=== PATIENT | female | born 1980 | race Caucasian/White ===

== ENCOUNTER → 2016-10-31 | Outpatient (CLI) | payer MEDICAID ==
[2016-10-31 14:21] LABS: HEMATOCRIT 40.6 % (36.0-47.0); HEMOGLOBIN 14.1 g/dL (12.0-15.5); HGB HCT DIFFERENCE 1.7; MEAN CORPUSCULAR HEMOGLOBIN 31.6 pg (27.0-33.4); MEAN CORPUSCULAR HGB CONC 34.6 g/dL (32.0-36.0); MEAN CORPUSCULAR VOLUME 91 fl (80-97); RED BLOOD COUNT 4.46 10^6/uL (3.72-5.28); RED CELL DISTRIBUTION WIDTH 12.9 % (11.5-14.0); WHITE BLOOD COUNT 7.2 10^3/uL (4.0-10.5)
[2016-10-31 14:40] LABS: ALANINE AMINOTRANSFERASE 21 U/L (9-52); ALBUMIN 4.2 g/dL (3.5-5.0); ALKALINE PHOSPHATASE 51 U/L (38-126); ASPARTATE AMINO TRANSFERASE 16 U/L (14-36); BILIRUBIN,DIRECT 0.1 mg/dL (0.0-0.4); BILIRUBIN,TOTAL 0.5 mg/dL (0.2-1.3); CHOLESTEROL 146.55 mg/dL (0-200); Direct HDL 57 mg/dL (>40); MAGNESIUM 1.8 mg/dL (1.6-2.3); TOTAL PROTEIN 6.8 g/dL (6.3-8.2); TRIGLYCERIDES 40 mg/dL (<150)
[2016-10-31 14:49] LABS: ANION GAP 12 (5-19); BLOOD UREA NITROGEN 9 mg/dL (7-20); CALCIUM 9.3 mg/dL (8.4-10.2); CARBON DIOXIDE 26 mmol/L (22-30); CHLORIDE 106 mmol/L (98-107); CREATININE RESULT 0.86 mg/dL (0.52-1.25); GLUCOSE 96 mg/dL (75-110); POTASSIUM 4.6 mmol/L (3.6-5.0); SODIUM 143.8 mmol/L (137-145)
[2016-10-31 14:51] LABS: DIRECT LDL 68 mg/dL (<100)
== END ==
LOC: OD 13:00
PROVIDERS: ATTEND Internal Medicine Cardiovascular Disease
DX: E89.0 Postprocedural hypothyroidism (principal); R00.2 Palpitations
CPT/HCPCS: 36415; 80048; 80061; 80076; 83735; 84443; 85027

== ENCOUNTER → 2016-11-29 | Outpatient (CLI) | payer MEDICAID ==
--- NOTE | 2016-11-29 14:06 | RADIOLOGY REPORT (SQ) ---
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 Additional selected color Doppler and spectral images recorded. LIMITATIONS: None. FINDINGS: UTERUS: Contour normal. No mass. Uterus is 8 x 5 x 5 cm in size. ENDOMETRIAL STRIPE: No focal or generalized thickening. No masses. Endometrial stripe 12 mm in thick ness. No gross endometrial cysts or polyps. CERVIX: No nabothian cysts. RIGHT OVARY: No abnormal masses. Right ovary measures 3 x 2.4 x 2.4 cm in size with a 2 cm simple cys t. 4 or 5 other small less than 5 mm follicular cysts are present. RIGHT OVARY DOPPLER: Normal arterial vascular flow without evidence for torsion. LEFT OVARY: No abnormal masses. Left ovary measures 2.7 x 1.6 x 1.3 cm in size. 12 follicular cysts are present, less than 5 mm in size. LEFT OVARY DOPPLER: Normal arterial vascular flow without evidence for torsion. FREE FLUID: None noted. OTHER: No other significant finding. IMPRESSION: Stable 2 cm right ovarian simple cyst. Otherwise unremarkable study TECHNICAL DOCUMENTATION: JOB ID: [id number]- All Rights Reserved
== END ==
LOC: RAD 10:43
PROVIDERS: ATTEND Family Medicine
DX: N83.291 Other ovarian cyst, right side (principal); N83.10 Corpus luteum cyst of ovary, unspecified side
CPT/HCPCS: 76830

== ENCOUNTER 2016-12-01 18:27 | Emergency (ER) | payer MEDICAID ==
[2016-12-01] MEDS ORDERED: ACETAMINOPHEN 325 MG TABLET PO ONE (20:03)
--- NOTE | 2016-12-01 20:04 | ER Document Report ---
ED ENT - General Chief Complaint: Neck and Upper Back Pain Stated Complaint: HEAD PAIN Time Seen by Provider: 12/01/16 19:35 Mode of Arrival: Ambulatory Information source: Patient Notes: 36-year-old female presents to ED for complaint of left ear pain with left- sided throat hurting left neck hurting, body aches with small insect bite to the left shoulder. There is a history of thyroid parahepatic for cancer as well as cervical cancer. TRAVEL OUTSIDE OF THE [place] IN LAST 30 DAYS: No - HPI Patient complains to provider of: Ear problem, Nose problem, Throat problem Onset: Other - Couple of days Onset/Duration: Gradual Quality of pain: Achy, Sharp Severity: Moderate Pain Level: 4 Context: Recent Illness Location of pain: Ears, Nose, Sinus, Throat, Other - Body aches Associated symptoms: Congestion, Cough, Ear pain, Runny nose, Sinus drainage, Sore throat, Swollen glands, Other - Insect bite to the left shoulder Similar symptoms previously: Yes Recently seen / treated by doctor: No - Related Data Allergies/Adverse Reactions: No Known Allergies Allergy (Verified 12/01/16 18:55) Past Medical History - General Information source: Patient - Social History Smoking Status: Former Smoker Cigarette use (# per day): No Chew tobacco use (# tins/day): No Smoking Education Provided: No Frequency of alcohol use: None Drug Abuse: Marijuana Occupation: Disability Lives with: Family Family History: CAD, CVA, Hyperlipidemia, Hypertension, Malignancy, Thyroid Disfunction Patient has suicidal ideation: No Patient has homicidal ideation: No - Past Medical History Cardiac Medical History: Reports: None Pulmonary Medical History: Reports: None EENT Medical History: Reports: None Neurological Medical History: Reports: None Endocrine Medical History: Reports: Hx Hypothyroidism - Thyroid and parathyroid removed due to thyroid cancer Renal/ Medical History: Reports: None Malignancy Medical History: Reports: Hx Cervical Cancer, Other - Thyroid cancer GI Medical History: Reports: None Musculoskeltal Medical History: Reports None Skin Medical History: Reports None Psychiatric Medical History: Reports: Hx Dementia, Hx Depression Traumatic Medical History: Reports: None Infectious Medical History: Reports: None Past Surgical History: Reports: Hx Gynecologic Surgery - Endoscopy D&C polypectomy from uterus, Hx Thyroid Surgery - Thyroidectomy as well as parathyroid gland, Other - ECT for depression Review of Systems - Review of Systems Constitutional: Recent illness EENT: Ear pain, Sinus pressure, Sinus discharge, Throat pain Cardiovascular: No symptoms reported Respiratory: Cough Gastrointestinal: No symptoms reported Genitourinary: No symptoms reported Female Genitourinary: No symptoms reported Musculoskeletal: Muscle pain - Body aches Skin: No symptoms reported Hematologic/Lymphatic: No symptoms reported Neurological/Psychological: No symptoms reported Physical Exam - Vital signs Vitals: Temp Pulse Resp BP Pulse Ox 98.2 F 106 H 18 130/89 H 100 12/01/16 18:55 12/01/16 18:55 12/01/16 18:55 12/01/16 18:55 12/01/16 18:55 Interpretation: Normal - General General appearance: Appears well, Alert - HEENT Head: Normocephalic, Atraumatic Eyes: Normal Pupils: PERRL Ears: Normal External canal: Normal Tympanic membrane: Normal Sinus: Normal Nasal: Purulent discharge, Swelling Mouth/Lips: Normal Mucous membranes: Normal Pharynx: Erythema, Post nasal drainage. No: Exudate, Tonsillar hypertrophy Neck: Anterior cervical chain - Respiratory Respiratory status: No respiratory distress Chest status: Nontender Breath sounds: Nonproductive cough Chest palpation: Normal - Cardiovascular Rhythm: Regular Heart sounds: Normal auscultation Murmur: No - Abdominal Inspection: Normal Distension: No distension Bowel sounds: Normal Tenderness: Nontender Organomegaly: No organomegaly - Back Back: Normal, Nontender - Extremities General upper extremity: Normal inspection, Nontender, Normal color, Normal ROM , Normal temperature General lower extremity: Normal inspection, Nontender, Normal color, Normal ROM , Normal temperature, Normal weight bearing. No: Maria Guadalupe's sign - Neurological Neuro grossly intact: Yes Cognition: Normal Orientation: AAOx4 Adiel Coma Scale Eye Opening: Spontaneous Adiel Coma Scale Verbal: Oriented Adiel Coma Scale Motor: Obeys Commands Kingman Coma Scale Total: 15 Speech: Normal Motor strength normal: LUE, RUE, LLE, RLE Sensory: Normal - Psychological Associated symptoms: Normal affect, Normal mood - Skin Skin Temperature: Warm Skin Moisture: Dry Skin Color: Normal Course - Re-evaluation Re-evalutation: 12/01/16 22:26 Consistent with an upper respiratory infection with runny nose cough congestion. Patient complains of sore throat strep was done which was negative. Patient to follow-up with her primary doctor. - Vital Signs Vital signs: Temp Pulse Resp BP Pulse Ox 98.0 F 76 18 124/84 98 12/01/16 21:20 12/01/16 21:20 12/01/16 21:20 12/01/16 21:20 12/01/16 21:20 Discharge - Discharge Clinical Impression: Sore throat (viral) URI (upper respiratory infection) Qualifiers: URI type: unspecified URI Qualified Code(s): J06.9 - Acute upper respiratory infection, unspecified Headache Qualifiers: Headache type: unspecified Headache chronicity pattern: unspecified pattern Intractability: not intractable Qualified Code(s): R51 - Headache Condition: Stable Disposition: HOME, SELF-CARE Additional Instructions: UPPER RESPIRATORY ILLNESS: You have a viral infection of the respiratory passages -- a "cold." This common infection causes nasal congestion, drainage, and often sore throat and cough. It is highly contagious. The disease usually lasts about 10 to 14 days. There is no "cure" for the viral infection -- it must run its course. If there is a complication, such as bacterial infection in the nose, sinuses, middle ear, or bronchial tubes, antibiotics may be required. The antibiotics won't affect the virus. Drink plenty of fluids. A humidifier may help. An expectorant medication or decongestant may make you more comfortable. Use acetaminophen or ibuprofen for fever or aches. See the doctor if fever persists over two days, if there is any significant worsening of your symptoms, or if you simply fail to improve as expected. Headache The physician does not feel that the headache you are experiencing has a serious underlying cause. Most headaches are due to emotional stress, with resultant muscle tension (tension headache). Occasionally, headaches are secondary to changes in the blood vessels of the scalp (vascular headache and migraine headache). Sometimes, a headache is the first symptom of another developing illness, such as a viral infection. You have no evidence of stroke, bleeding, meningitis, or other serious cause of your headache. The treatment of headaches varies with the severity and cause of the pain. Not all headaches need pain shots. In fact, there is evidence that using narcotics for headaches may make them worse in the long run. The physician will determine the therapy that's in your best interest. If you develop a fever, if the headache is different from any you've previously experienced, or if the headache progressively worsens, then call your physician at once or go to the emergency room. SORE THROAT: Sore throats may be caused by viruses, bacteria, or fungi. Most are due to a virus, and must get better on their own. Bacterial sore throats, particularly those due to "strep," need treatment with antibiotics. If an antibiotic is prescribed, be sure to take the medication for a full 10 days. Failure to take the antibiotic can result in complications such as rheumatic fever. Sometimes, an injection of antibiotics is given instead of pills or liquid. This single "shot" is equal in effectiveness to the oral medication. To relieve symptoms, take acetaminophen for pain. Sip clear liquids frequently, or eat popsicles or ice chips. Anesthetic sprays or lozenges may help. Make sure the air in the room is not too dry. Avoid using decongestants or antihistamines. Call the doctor if there is no improvement in two days, or if you have difficulty breathing, increasing throat pain, high fever, rash, or frequent vomiting. DECONGESTANT MEDICATION: A decongestant medicine has been prescribed. Often this medicine is combined in the same tablet with an antihistamine or expectorant. This type of medicine is helpful in treating a bad cold or sinus condition, as well as in treatment of the nasal congestion of hay fever. It is not of much benefit for lung infections. Decongestant medicines are related to stimulants. They can cause an increase in blood pressure and heart rate. Persons with heart disease and high blood pressure should not take decongestants without discussing this with the physician. If you develop palpitations, chest pain, headache, or tremors, stop the medicine and consult your physician. COUGH-SUPPRESSANT & EXPECTORANT MEDICATION: You are to use a cough medication as needed for relief of symptoms. This medicine is a combination of an expectorant (to make the mucous thinner and more easily "coughed up") and a cough suppressant (to reduce the frequency of coughing). The cough-suppressant medicine is related to narcotics. You may experience mild nausea and sleepiness. Some patients who are very sensitive to narcotics may have stomach pain from this medicine. Taking the medicine with food reduces these side effects. Do not drive or work with machinery until you know how this medicine affects you. The expectorant should have no side effects. Iodine-containing expectorants (such as organidin) should not be taken by persons with active thyroid disease unless approved by your doctor. Call the doctor if you develop shortness of breath, hives, rash, itching, lightheadedness, or severe nausea and vomiting. USE OF ACETAMINOPHEN (Tylenol): Acetaminophen may be taken for pain relief or fever control. It's much safer than aspirin, offering a wider range of "safe" dosages. It is safe during . Some brand names are Tylenol, Panadol, Datril, Anacin 3, Tempra, and Liquiprin. Acetaminophen can be repeated every four hours. The following are maximum recommended dosages: >89 pounds or adults 650 mg to 900 mg Acetaminophen can be repeated every four hours. Maximum dose not to exceed 4000 mg a day. FOLLOW-UP CARE: If you have been referred to a physician for follow-up care, call the physician s office for an appointment as you were instructed or within the next two days. If you experience worsening or a significant change in your symptoms, notify the physician immediately or return to the Emergency Department at any time for re-evaluation. Prescriptions: Prochlorperazine Maleate [Compazine 10 mg Tablet] 10 mg PO Q8HP PRN #10 tablet PRN Reason: Forms: Elevated Blood Pressure Referrals: GIANNA CLAY MD [Primary Care Provider] - Follow up as needed
[2016-12-01 21:25] VITALS: BP 124/84
== END 2016-12-01 21:27 | disposition home or self-care (01) ==
LOC: ER 18:27
DX: J06.9 Acute upper respiratory infection, unspecified (principal); J02.9 Acute pharyngitis, unspecified; R51 Headache; M54.2 Cervicalgia; M54.89 Other dorsalgia; E03.9 Hypothyroidism, unspecified; Z85.41 Personal history of malignant neoplasm of cervix uteri; Z85.850 Personal history of malignant neoplasm of thyroid; Z87.891 Personal history of nicotine dependence
CPT/HCPCS: 99283; 87070; 87880; J3490

== ENCOUNTER 2016-12-09 23:08 | Emergency (ER) | payer MEDICAID ==
[2016-12-09 23:58] VITALS: BP 121/90
== END 2016-12-10 03:15 | disposition left against medical advice (07) ==
LOC: ER 23:08
DX: Z53.9 Procedure and treatment not carried out, unspecified reason (principal); R51 Headache

== ENCOUNTER → 2017-03-03 | Outpatient (CLI) | payer MEDICAID ==
[2017-03-03 19:08] LABS: THYROID STIMULATING HORMONE 4.4 uIU/mL (0.47-4.68)
== END ==
LOC: LAB 18:03
PROVIDERS: ATTEND Family Medicine
DX: C73 Malignant neoplasm of thyroid gland (principal)
CPT/HCPCS: 36415; 84439; 84443

== ENCOUNTER 2017-10-23 11:54 | Emergency (ER) | payer MEDICAID ==
[2017-10-23 12:34] LABS: APPEARANCE,URINE CLEAR; BILIRUBIN,URINE NEGATIVE (NEGATIVE); COLOR,URINE YELLOW; GLUCOSE, URINE NEGATIVE (NEGATIVE); KETONES,URINE NEGATIVE (NEGATIVE); LEUKOCYTE ESTERASE,URINE NEGATIVE (NEGATIVE); NITRITE,URINE NEGATIVE (NEGATIVE); PROTEIN,URINE NEGATIVE (NEGATIVE); URINE SPECIFIC GRAVITY 1.004; UROBILINOGEN,URINE NEGATIVE mg/dL (<2.0)
[2017-10-23 12:42] LABS: URINE AMPHETAMINES SCREEN NEGATIVE; URINE BARBITURATES SCREEN NEGATIVE; URINE BENZODIAZEPINES SCREEN NEGATIVE; URINE COCAINE SCREEN NEGATIVE; URINE MARIJUANA (THC) SCREEN UNCONFIRMED POSITIVE; URINE METHADONE SCREEN NEGATIVE; URINE PHENCYCLIDINE SCREEN NEGATIVE
--- NOTE | 2017-10-23 12:46 | ER Document Report ---
ED Medical Screen (RME) - General Chief Complaint: Abdominal Pain Stated Complaint: ABDOMINAL PAIN Time Seen by Provider: 10/23/17 12:45 Notes: Patient states that she was having some mild abdominal cramping and she smokes marijuana this morning. She then developed severe right lower quadrant abdominal pain. She states she has not had a bowel movement in approximately 1 week. She states that several months ago her bowel movements have changed or become smaller in caliber. TRAVEL OUTSIDE OF THE [place] IN LAST 30 DAYS: No - Related Data Allergies/Adverse Reactions: No Known Allergies Allergy (Verified 12/01/16 18:55) Past Medical History - Social History Frequency of alcohol use: Rare Drug Abuse: Marijuana Endocrine Medical History: Reports: Hx Hypothyroidism - Thyroid and parathyroid removed due to thyroid cancer Renal/ Medical History: Reports: Hx Peritoneal Dialysis Malignancy Medical History: Reports: Hx Cervical Cancer Psychiatric Medical History: Reports: Hx Dementia, Hx Depression Past Surgical History: Reports: Hx Gynecologic Surgery - Endoscopy D&C polypectomy from uterus, Hx Thyroid Surgery - Thyroidectomy as well as parathyroid gland, Other - ECT for depression Physical Exam - Vital signs Vitals: Temp Pulse Resp BP Pulse Ox 98.0 F 103 H 22 H 115/81 98 10/23/17 12:01 10/23/17 12:01 10/23/17 12:01 10/23/17 12:01 10/23/17 12:01 Course - Vital Signs Vital signs: Temp Pulse Resp BP Pulse Ox 98.0 F 103 H 22 H 115/81 98 10/23/17 12:01 10/23/17 12:01 10/23/17 12:01 10/23/17 12:01 10/23/17 12:01 Doctor's Discharge - Discharge Referrals: GIANNA CLAY MD [Primary Care Provider] - Follow up as needed
[2017-10-23 13:01] LABS: ABSOLUTE LYMPHOCYTES (AUTO) 1.8 10^3/uL (0.5-4.7); ABSOLUTE MONOCYTES (AUTO) 0.6 10^3/uL (0.1-1.4); ABSOLUTE NEUT (AUTO) 6.7 10^3/uL (1.7-8.2); BASOPHILS % (AUTO) 0.5 % (0-2); EOSINOPHILS % (AUTO) 0.3 % (0-6); HEMATOCRIT 45.6 % (36.0-47.0); HEMOGLOBIN 15.9 g/dL (12.0-15.5); LYMPHOCYTES % (AUTO) 19.4 % (13-45); MEAN CORPUSCULAR HEMOGLOBIN 31.5 pg (27.0-33.4); MEAN CORPUSCULAR HGB CONC 34.8 g/dL (32.0-36.0); MEAN CORPUSCULAR VOLUME 90 fl (80-97); MONOCYTES % (AUTO) 6.2 % (3-13); PLATELET COUNT 318 10^3/uL (150-450); RED BLOOD COUNT 5.06 10^6/uL (3.72-5.28); RED CELL DISTRIBUTION WIDTH 12.8 % (11.5-14.0); SEGMENTED NEUTROPHILS % (AUTO) 73.6 % (42-78); TOTAL CELLS COUNTED % (AUTO) 100 %; WHITE BLOOD COUNT 9.1 10^3/uL (4.0-10.5)
[2017-10-23 13:13] LABS: ALANINE AMINOTRANSFERASE 28 U/L (9-52); ALBUMIN 4.7 g/dL (3.5-5.0); ALKALINE PHOSPHATASE 53 U/L (38-126); ANION GAP 17 (5-19); ASPARTATE AMINO TRANSFERASE 25 U/L (14-36); BILIRUBIN,DIRECT 0.4 mg/dL (0.0-0.4); BILIRUBIN,TOTAL 0.7 mg/dL (0.2-1.3); BLOOD UREA NITROGEN 6 mg/dL (7-20); CALCIUM 9.9 mg/dL (8.4-10.2); CARBON DIOXIDE 26 mmol/L (22-30); CHLORIDE 100 mmol/L (98-107); GLUCOSE 152 mg/dL (75-110); POTASSIUM 3.6 mmol/L (3.6-5.0); SODIUM 143.3 mmol/L (137-145); TOTAL PROTEIN 7.6 g/dL (6.3-8.2)
--- NOTE | 2017-10-23 16:07 | ER Document Report ---
ED GI/ - General Chief Complaint: Abdominal Pain Stated Complaint: ABDOMINAL PAIN Time Seen by Provider: 10/23/17 12:45 Notes: The patient is a 37-year-old female who presents with several hours of worsening right sided abdominal pain that is now moving periumbilical. The pain is constant. She denies nausea, vomiting, fevers, urinary symptoms, flank pain, rash, vaginal discharge, diarrhea or constipation TRAVEL OUTSIDE OF THE [place] IN LAST 30 DAYS: No - Related Data Allergies/Adverse Reactions: No Known Allergies Allergy (Verified 12/01/16 18:55) Past Medical History - General Information source: Patient - Social History Smoking Status: Current Some Day Smoker Frequency of alcohol use: Rare Drug Abuse: Marijuana Family History: CAD, CVA, Hyperlipidemia, Hypertension, Malignancy, Thyroid Disfunction Patient has suicidal ideation: No Patient has homicidal ideation: No Endocrine Medical History: Reports: Hx Hypothyroidism - Thyroid and parathyroid removed due to thyroid cancer Renal/ Medical History: Reports: Hx Peritoneal Dialysis Malignancy Medical History: Reports: Hx Cervical Cancer Psychiatric Medical History: Reports: Hx Dementia, Hx Depression Past Surgical History: Reports: Hx Gynecologic Surgery - Endoscopy D&C polypectomy from uterus, Hx Thyroid Surgery - Thyroidectomy as well as parathyroid gland, Other - ECT for depression Review of Systems - Review of Systems Notes: REVIEW OF SYSTEMS: CONSTITUTIONAL: -fevers, -chills EENT: -eye pain, -difficulty swallowing, -nasal congestion CARDIOVASCULAR: -chest pain, -syncope. RESPIRATORY: -cough, -SOB GASTROINTESTINAL: +abdominal pain, -nausea, -vomiting, -diarrhea GENITOURINARY: -dysuria, -hematuria MUSCULOSKELETAL: -back pain, -neck pain SKIN: -rash or skin lesions. HEMATOLOGIC: -easy bruising or bleeding. LYMPHATIC: -swollen, enlarged glands. NEUROLOGICAL: -altered mental status or loss of consciousness, -headache, - neurologic symptoms PSYCHIATRIC: -anxiety, -depression. ALL OTHER SYSTEMS REVIEWED AND NEGATIVE. Physical Exam - Vital signs Vitals: Temp Pulse Resp BP Pulse Ox 98.0 F 103 H 22 H 115/81 98 10/23/17 12:01 10/23/17 12:01 10/23/17 12:01 10/23/17 12:01 10/23/17 12:01 - Notes Notes: PHYSICAL EXAMINATION: GENERAL: Well-appearing, well-nourished and in no acute distress. HEAD: Atraumatic, normocephalic. EYES: Pupils equal round and reactive to light, extraocular movements intact, sclera anicteric, conjunctiva are normal. ENT: nares patent, oropharynx clear without exudates. Moist mucous membranes. NECK: Normal range of motion, supple without lymphadenopathy LUNGS: Breath sounds clear to auscultation bilaterally and equal. No wheezes rales or rhonchi. HEART: Regular rate and rhythm without murmurs ABDOMEN: Soft, mild RLQ tenderness, normoactive bowel sounds. No guarding, no rebound. No masses appreciated. EXTREMITIES: Normal range of motion, no pitting or edema. No cyanosis. NEUROLOGICAL: Cranial nerves grossly intact. Normal speech, normal gait. Normal sensory and motor exams. PSYCH: Normal mood, normal affect. SKIN: Warm, Dry, normal turgor, no rashes or lesions noted. Course - Re-evaluation Re-evalutation: Patient with several hours of worsening right-sided abdominal pain that is worse now periumbilically and in the right lower quadrant. CT abdomen pelvis ordered due to concern about appendicitis, but her CT exam, labs and urine do not show any acute abnormalities. Will discharge patient home with follow-up at her primary care physician. - Vital Signs Vital signs: Temp Pulse Resp BP Pulse Ox 98.0 F 103 H 22 H 115/81 98 10/23/17 12:01 10/23/17 12:01 10/23/17 12:01 10/23/17 12:01 10/23/17 12:01 - Laboratory Result Diagrams: 10/23/17 11:07 10/23/17 11:07 Laboratory results interpreted by me: 10/23/17 10/23/17 11:07 11:07 Hgb 15.9 H BUN 6 L Glucose 152 H - Diagnostic Test Radiology reviewed: Image reviewed, Reports reviewed Radiology results interpreted by me: CT A/P: NAD Discharge - Discharge Clinical Impression: Abdominal pain Qualifiers: Abdominal location: unspecified location Qualified Code(s): R10.9 - Unspecified abdominal pain Condition: Stable Disposition: HOME, SELF-CARE Additional Instructions: ABDOMINAL PAIN: There are many causes of abdominal pain. Pain can mean a serious problem requiring surgery (such as appendicitis). It can also be an innocent problem that goes away on its own (such as a viral infection). Often, time must pass to determine the cause of pain. The physician does not feel that hospitalization is necessary, at present. Things may change within the next 24 hours. Call the doctor or come back for re- examination if any problems occur, such as: (1) Pain that becomes more severe, steady, or becomes concentrated in one specific area. Also, pain that is more severe with movement or coughing. (2) Vomiting that persists or becomes more frequent. (3) Blood in the vomitus, urine, or bowel movements. Blood in the stool may have a tarry or black appearance. (4) Shaking chills or fever greater than 100 degrees F. (5) The abdomen becomes more distended or swollen. (6) Bowel movements cease. (7) Failure to improve as expected. NORMAL EXAM AND WORKUP: At this time, your examination and workup show no significant abnormality. No significant abnormal physical findings are noted. All laboratory, EKG, and imaging (x-ray, CT scans, ultrasound) studies that were ordered show no significant abnormality. Although your examination and all studies that were ordered showed no significant abnormal finding, there are no examinations and no studies that are 100% accurate. There is always the possibility that some abnormality could exist and not be detected with physical examination or within the limits and capabilities of laboratory and other studies. You should return or follow up as you were instructed on your visit today for further evaluation if your symptoms do not resolve. FOLLOW-UP CARE: If you have been referred to a physician for follow-up care, call the physician s office for an appointment as you were instructed or within the next two days. If you experience worsening or a significant change in your symptoms, notify the physician immediately or return to the Emergency Department at any time for re-evaluation. Referrals: GIANNA CLAY MD [Primary Care Provider] - Follow up as needed
--- NOTE | 2017-10-23 19:12 | RADIOLOGY REPORT (SQ) ---
EXAM DESCRIPTION: CT ABD/PELVIS WITH IV ORAL COMPLETED DATE/TIME: 10/23/2017 6:54 pm REASON FOR STUDY: RLQ tenderness, N/V COMPARISON: None. TECHNIQUE: CT scan of the abdomen and pelvis performed using helical scanning technique with dynamic intravenous contrast injection. Oral contrast. Images reviewed with lung, soft tissue, and bone win dows. Reconstructed coronal and sagittal MPR images reviewed. Delayed images for evaluation of the ur inary system also acquired. All images stored on PACS. All CT scanners at this facility use dose modulation, iterative reconstruction, and/or weight based d osing when appropriate to reduce radiation dose to as low as reasonably achievable (ALARA). [facility]: Dose Right [facility]: CareDose [facility]: Dose Right [facility]: Teradose 4D [facility]: Spectraseis CONTRAST TYPE AND DOSE: contrast/concentration: Isovue 370.00 mg/ml; Total Contrast Delivered: 92.0 ml; Total Saline Delivered: 50.0 ml RENAL FUNCTION: BUN 6 creatinine 0.92 RADIATION DOSE: CT Rad equipment meets quality standard of care and radiation dose reduction techniq ues were employed. CTDIvol: 9.8 - 13.7 mGy. DLP: 1169 mGy-cm.. LIMITATIONS: None. FINDINGS: LOWER CHEST: No significant findings. No nodules or infiltrates. LIVER: Normal size. No masses. No dilated ducts. SPLEEN: Normal size. No focal lesions. PANCREAS: No masses. No significant calcifications. No adjacent inflammation or peripancreatic fluid collections. Pancreatic duct not dilated. GALLBLADDER: No identified stones by CT criteria. No inflammatory changes to suggest cholecystitis. ADRENAL GLANDS: No significant masses or asymmetry. RIGHT KIDNEY AND URETER: No solid masses. No significant calcifications. No hydronephrosis or hyd roureter. LEFT KIDNEY AND URETER: No solid masses. No significant calcifications. No hydronephrosis or hydr oureter. AORTA AND VESSELS: No aneurysm. No dissection. Renal arteries, SMA, celiac without stenosis. RETROPERITONEUM: No retroperitoneal adenopathy, hemorrhage or masses. BOWEL AND PERITONEAL CAVITY: No masses or inflammatory changes. No free fluid or peritoneal masses. APPENDIX: Normal. PELVIS: No mass. No free fluid. Normal bladder. ABDOMINAL WALL: No masses. No hernias. BONES: No significant or acute findings. OTHER: No other significant finding. IMPRESSION: NO SIGNIFICANT OR ACUTE FINDING IN THE ABDOMEN OR PELVIS ON CT SCAN WITH IV CONTRAST. TECHNICAL DOCUMENTATION: JOB ID: [id number] Quality ID # [id number]: Final reports with documentation of one or more dose reduction techniques (e.g., Au tomated exposure control, adjustment of the mA and/or kV according to patient size, use of iterative reconstruction technique) 2010 [employer]- All Rights Reserved Reading location - IP/workstation name: [email or web address]
[2017-10-23 19:46] VITALS: BP 122/93
== END 2017-10-23 19:47 | disposition home or self-care (01) ==
LOC: ER 11:54
DX: R10.33 Periumbilical pain (principal); R10.31 Right lower quadrant pain; R10.813 Right lower quadrant abdominal tenderness; F17.200 Nicotine dependence, unspecified, uncomplicated; E89.0 Postprocedural hypothyroidism; Z85.41 Personal history of malignant neoplasm of cervix uteri; Z85.850 Personal history of malignant neoplasm of thyroid
CPT/HCPCS: 36415; 74177; 80053; 80307; 81001; 81025; 85025; 99284

== ENCOUNTER 2017-10-24 20:10 | Emergency (ER) | payer MEDICAID ==
[2017-10-24 21:24] LABS: ABSOLUTE LYMPHOCYTES (AUTO) 2.5 10^3/uL (0.5-4.7); ABSOLUTE NEUT (AUTO) 8.8 10^3/uL (1.7-8.2); BASOPHILS % (AUTO) 0.3 % (0-2); EOSINOPHILS % (AUTO) 0.3 % (0-6); HEMATOCRIT 41.4 % (36.0-47.0); HEMOGLOBIN 14.7 g/dL (12.0-15.5); MEAN CORPUSCULAR HEMOGLOBIN 31.8 pg (27.0-33.4); MEAN CORPUSCULAR HGB CONC 35.4 g/dL (32.0-36.0); MEAN CORPUSCULAR VOLUME 90 fl (80-97); PLATELET COUNT 279 10^3/uL (150-450); RED BLOOD COUNT 4.62 10^6/uL (3.72-5.28); RED CELL DISTRIBUTION WIDTH 12.7 % (11.5-14.0); SEGMENTED NEUTROPHILS % (AUTO) 71.4 % (42-78); TOTAL CELLS COUNTED % (AUTO) 100 %; WHITE BLOOD COUNT 12.3 10^3/uL (4.0-10.5)
--- NOTE | 2017-10-24 21:24 | ER Document Report ---
ED General - General Chief Complaint: R flank pain, diarrhea Stated Complaint: RIGHT FLANK PAIN,DIARRHEA Time Seen by Provider: 10/24/17 21:10 Mode of Arrival: Ambulatory Information source: Patient Notes: This is a 37-year-old female presented to the emergency room with abdominal pain. Patient states she was evaluated yesterday. She states the pain started yesterday. She states that she also started her period and she has been bleeding a lot. She denies any fever or chills. She does state she has got a history of kidney stones and thyroid disease. She states she feels like her thyroid levels have been "out of whack". She is followed by Dr. Clay for primary care. She denies any fever or vomiting. She states that the pain comes and goes. She states that she is having difficulty sleeping. Patient I did speak to the patient's states that the patient has not been sleeping. She does have a history of anxiety and depression seems to be worsening lately. TRAVEL OUTSIDE OF THE [place] IN LAST 30 DAYS: No - HPI Onset: Last week Onset/Duration: Gradual Quality of pain: Achy Severity: None Pain Level: Denies Associated symptoms: denies: Chest pain, Fever, Nausea, Vomiting, Shortness of breath Exacerbated by: Denies Relieved by: Denies Similar symptoms previously: Yes Recently seen / treated by doctor: Yes - Related Data Allergies/Adverse Reactions: No Known Allergies Allergy (Verified 12/01/16 18:55) Past Medical History - General Information source: Patient - Social History Smoking Status: Current Every Day Smoker Cigarette use (# per day): Yes - Half pack per day Chew tobacco use (# tins/day): No Frequency of alcohol use: Rare Drug Abuse: Marijuana Lives with: Family Family History: CAD, CVA, Hyperlipidemia, Hypertension, Malignancy, Thyroid Disfunction Patient has suicidal ideation: No Patient has homicidal ideation: No Endocrine Medical History: Reports: Hx Hypothyroidism - Thyroid and parathyroid removed due to thyroid cancer Renal/ Medical History: Denies: Hx Peritoneal Dialysis Malignancy Medical History: Reports: Hx Cervical Cancer Psychiatric Medical History: Reports: Hx Dementia, Hx Depression Past Surgical History: Reports: Hx Gynecologic Surgery - Endoscopy D&C polypectomy from uterus, Hx Thyroid Surgery - Thyroidectomy as well as parathyroid gland, Other - ECT for depression Review of Systems - Review of Systems Constitutional: denies: Chills, Fever EENT: No symptoms reported Cardiovascular: No symptoms reported Respiratory: No symptoms reported Gastrointestinal: See HPI Genitourinary: No symptoms reported Female Genitourinary: No symptoms reported Musculoskeletal: No symptoms reported Skin: No symptoms reported Hematologic/Lymphatic: No symptoms reported Neurological/Psychological: See HPI Physical Exam - Vital signs Vitals: Temp Pulse Resp BP Pulse Ox 98.0 F 86 20 135/92 H 99 10/24/17 20:25 10/24/17 20:25 10/24/17 20:25 10/24/17 20:25 10/24/17 20:25 Notes: Physical exam: GENERAL: 37-year-old female, alert and oriented 3, no acute distress HEAD: Atraumatic, normocephalic. EYES: Pupils equal round and reactive to light, extraocular movements intact, sclera anicteric, conjunctiva are normal. ENT: TMs normal, nares patent, oropharynx clear without exudates. Moist mucous membranes. NECK: Normal range of motion, supple without obvious mass or JVD. LUNGS: Breath sounds clear to auscultation bilaterally and equal. No wheezes rales or rhonchi. HEART: Regular rate and rhythm without murmurs, rubs or gallops. ABDOMEN: Soft, normoactive bowel sounds. Mild tenderness to the upper quadrants without rebound or guarding. Lower quadrants are nontender. No masses appreciated. EXTREMITIES: Normal range of motion, no pitting or edema. No clubbing or cyanosis. NEUROLOGICAL: Cranial nerves II through XII grossly intact. Normal speech, moving all extremities. PSYCH: She states she is depressed, not sleeping SKIN: Warm, Dry, normal turgor, no rashes or lesions noted. Course - Re-evaluation Re-evalutation: 10/25/17 00:57 Note: The patient has been ambulatory and is fine. Her vital signs are stable. Her labs are relatively stable and the ultrasound is normal. I reviewed the CT from yesterday which was basically okay. Patient does have a history of hypothyroidism and I checked her thyroid tests and they look fine at this time. She does have a remote history of major depression and having ECT treatments in [place] years ago. She does state that she has not been able to sleep and that her mind has been racing and she has been more depressed. I have asked her if she is willing to stay the evening (voluntarily) to speak to the psychiatrist in the morning. She is willing to. I discussed this with the patient's who is okay with the plan. Patient currently is on BuSpar but is not followed by any counselor or psychiatrist. 10/25/17 00:59 Patient is medically stable for discharge at this time. She is willing to stay for psychiatric evaluation. She is not homicidal or suicidal at this time. There is no overt hallucinations or delusions at this time. 10/25/17 01:01 - Vital Signs Vital signs: Temp Pulse Resp BP Pulse Ox 99.9 F 90 18 135/94 H 97 10/25/17 01:53 10/25/17 01:53 10/25/17 01:53 10/25/17 01:53 10/25/17 01:53 - Laboratory Result Diagrams: 10/24/17 21:00 10/24/17 21:00 Laboratory results interpreted by me: 10/24/17 21:00 WBC 12.3 H Absolute Neutrophils 8.8 H - Diagnostic Test Radiology reviewed: Image reviewed, Reports reviewed - Abdomen ultrasound shows no acute process. Discharge - Discharge Clinical Impression: Abdominal pain, Depression Condition: Stable Disposition: HOME, SELF-CARE Additional Instructions: As we discussed, the CT from yesterday and the ultrasound from today showed no acute intra-abdominal process. Your lab work has been very good. I would want you to follow-up with Dr. Clay. Bring a copy of the lab work and the radiologic studies with you when you see him. Referrals: GIANNA CLAY MD [Primary Care Provider] - Follow up as needed
[2017-10-24 21:54] LABS: ALANINE AMINOTRANSFERASE 29 U/L (9-52); ALBUMIN 4.6 g/dL (3.5-5.0); ALKALINE PHOSPHATASE 55 U/L (38-126); ANION GAP 14 (5-19); ASPARTATE AMINO TRANSFERASE 28 U/L (14-36); BILIRUBIN,DIRECT 0.3 mg/dL (0.0-0.4); BILIRUBIN,TOTAL 0.5 mg/dL (0.2-1.3); BLOOD UREA NITROGEN 7 mg/dL (7-20); CALCIUM 9.4 mg/dL (8.4-10.2); CARBON DIOXIDE 26 mmol/L (22-30); CHLORIDE 101 mmol/L (98-107); GLUCOSE 92 mg/dL (75-110); LIPASE 47.5 U/L (23-300); POTASSIUM 3.6 mmol/L (3.6-5.0); SODIUM 141.1 mmol/L (137-145); TOTAL PROTEIN 7.4 g/dL (6.3-8.2)
[2017-10-24] MEDS ORDERED: KETOROLAC TROMETHAMINE 60 MG/2 ML SDV IM ONE (22:04)
[2017-10-24 22:11] LABS: FREE T4 (FREE THYROXINE) 1.57 ng/dL (0.78-2.19)
[2017-10-24 22:25] LABS: THYROID STIMULATING HORMONE 1.64 uIU/mL (0.47-4.68)
--- NOTE | 2017-10-24 23:15 | RADIOLOGY REPORT (SQ) ---
EXAM DESCRIPTION: U/S ABDOMEN LIMITED W/O DOP CLINICAL HISTORY: 37 years, Female, assess RUQ for GB disease COMPARISON: None. LIMITATIONS: None. FINDINGS: Mild hepatic steatosis. Gallbladder, negative sonographic Dowell's test, 0.4 cm common bile duct diameter, pancreas, aorta, 9 cm right kidney appear otherwise unremarkable. No free fluid. IMPRESSION: No acute findings. Mild hepatic steatosis.
[2017-10-25] MEDS ORDERED: HYDROXYZINE PAMOATE 50 MG CAPSULE PO ONE (02:05)
--- NOTE | 2017-10-25 09:25 | ER Document Report ---
Doctor's Note Notes: 10/25/17 10:12 As the rounding physician for our psychiatric patients, I have reviewed the chart, vitals, lab work. Patient has been examined and noted to be tearful crying. I am awaiting mental health in [place].
--- NOTE | 2017-10-25 12:50 | PSYCHOLOGICAL NOTE ---
Psych Note - Psych Note Psych Note: Reason for consult: increased anxiety and depression consent permissions: , Gary Almaraz [phone] Patient does have a history of hypothyroidism and I checked her thyroid tests and they look fine at this time. She does have a remote history of major depression and having ECT treatments in [place] years ago. She does state that she has not been able to sleep and that her mind has been racing and she has been more depressed. I have asked her if she is willing to stay the evening ( voluntarily) to speak to the psychiatrist in the morning. She is willing to. I discussed this with the patient's who is okay with the plan. Patient currently is on BuSpar but is not followed by any counselor or psychiatrist. Patient is observed sitting in the hallway. Patient was asked to please step into her room; patient stated to clinician "do I need to for you." Patient continued to state that she is confused and does not know what to do at which point patient became very tearful stating "tell me what to do." Patient continued disclosed "they are coming... They are coming from [place]... [facility]... It kill or be killed." Patient originally did not believe she was in [place] however then stated "await we are in [place] aren' t we." Clinician spoke with patient's , Gary Almaraz, who disclosed the patient received ECT a long time ago at which time they said she had bipolar. He continues state that back then it was her thyroid giving her issues. He reports that patient had her thyroid removed about 3 years ago has been "fine since." He states that she has been admitted into the hospital a "couple times to correct her thyroid." He states that recently she could not sleep and started acting strange. "I do not know if it is the thyroid affecting her brain or if it is the not sleeping... She normally sleeps 10 hours a day... She seems very lost and confused." He reports that 3 or 4 months ago she was talking "crazy" and thought people were after them. Patient is demonstrating acute psychosis and with orientation to self only. Mood is manic affect is liable with frequent outbursts of crying. Patient is demonstrating flight of thought. Paranoid delusions of persecution are noted. Eye contact is poor. Conversational speech is difficult to understand at times because the patient is crying very hard. Attention and concentration is poor. Insight, judgment, impulse control is poor. Medication recommendations per [facility]'s contracted psychiatrist Dr. Lanre MILLS are as follows 1. Continue home medication Buspar 10mg twice daily for agitation and anxiety 2. Zyprexa 5mg twice daily for acute psychosis 3. Cogentin 1mg daily for prevention of possible side effects from the zyprexa 296.44 (F31.2) bipolar 1 disorder manic episode with psychotic features Impression\\plan: Patient is recommended for IVC. Patient has decompensated since initial presentation to [facility] and is currently in acute psychosis demonstrating flight of thought and and paranoid delusions of persecution. Patient's affect is liable with frequent outbursts of crying. While patient's discloses mental health issues occurr because of her thyroid, attending physician noted patient's lab works for her thyroid are within normal range. Patient will be reevaluated. Dr. Powers was consulted and the care management this patient; attending physician is in agreement with recommendations and disposition.
[2017-10-25] MEDS ORDERED: BENZTROPINE MESYLATE 1 MG TABLET PO SCH (13:15)
[2017-10-25] MEDS ORDERED: OLANZAPINE 5 MG TABLET PO SCH (13:15)
[2017-10-25] MEDS ORDERED: BUSPIRONE HCL 10 MG TABLET PO SCH (13:15)
[2017-10-25] MEDS ORDERED: LEVOTHYROXINE SODIUM 0.1 MG TABLET PO SCH (13:15)
[2017-10-25] MEDS ORDERED: LEVOTHYROXINE SODIUM 0.1 MG TABLET PO ONE (14:00)
[2017-10-25] MEDS ORDERED: BENZTROPINE MESYLATE 1 MG TABLET PO ONE (14:00)
[2017-10-25 14:24] VITALS: BP 135/87
[2017-10-26] MEDS ORDERED: BENZTROPINE MESYLATE 1 MG TABLET PO SCH (10:00)
[2017-10-26] MEDS ORDERED: LEVOTHYROXINE SODIUM 0.1 MG TABLET PO SCH (10:00)
== END 2017-10-25 18:09 | disposition home or self-care (01) ==
LOC: ER 20:10
DX: F31.2 Bipolar disorder, current episode manic severe with psychotic features (principal); F41.9 Anxiety disorder, unspecified; R19.7 Diarrhea, unspecified; R10.9 Unspecified abdominal pain; F17.210 Nicotine dependence, cigarettes, uncomplicated; E03.9 Hypothyroidism, unspecified; Z85.850 Personal history of malignant neoplasm of thyroid; Z85.41 Personal history of malignant neoplasm of cervix uteri
CPT/HCPCS: 99285; 36415; 84439; 84702; 83690; 84443; 85025; 80053; 84481; 76705; J3490 ×5